=== PATIENT | female | born 1980 | race Caucasian/White ===

== ENCOUNTER 2020-05-21 15:55 | Inpatient (IN) | payer OTHER, MEDICARE, MEDICAID ==
[~2020-05-21] VITALS: Ht 162.6 cm; Wt 60.7 kg
--- NOTE | 2020-05-21 16:22 | NUR ---
PIV STARTED, LABS DRAWN AND SENT TO LAB. PT TAKEN TO CT. RESP EVEN AND UNLABORED, NIYA.
[2020-05-21 16:44] LABS: BASOPHILS % (AUTO) 0 % (0-1); EOSINOPHILS % (AUTO) 2 % (1-7); LYMPHOCYTES % (AUTO) 18 % (22-44); MEAN CORPUSCULAR HEMOGLOBIN 31.6 pg (27.0-34.8); MEAN CORPUSCULAR HGB CONC 33.8 g/dL (32.4-35.8); MEAN PLATELET VOLUME 6.9 fL (7.4-10.4); MONOCYTES % (AUTO) 10 % (2-9); NEUTROPHILS % (AUTO) 69 % (42-75); PLATELET COUNT 174 x10^3/uL (130-400); RED BLOOD COUNT 4.26 x10^6/uL (3.82-5.3)
[2020-05-21 16:47] LABS: ALBUMIN 3.2 g/dL (3.4-5.0); ANION GAP 7 mmol/L (5-15); CALCIUM 8.3 mg/dL (8.5-10.1); CHLORIDE 117 mmol/L (98-107)
[2020-05-21 16:51] LABS: MD NO
[2020-05-21 16:54] LABS: ALANINE AMINOTRANSFERASE 1691 U/L (12-78); ALKALINE PHOSPHATASE 132 U/L (45-117); BILIRUBIN,TOTAL 0.6 mg/dL (0.2-1.0); TOTAL PROTEIN 6.6 g/dL (6.4-8.2)
[2020-05-21] MEDS ORDERED: DIPHENHYDRAMINE 50 MG/ML, 1ML IVPush ONE (17:00)
[2020-05-21] MEDS ORDERED: SODIUM CHLORIDE FLUSH 10ML SYR IVF ONE (17:00)
[2020-05-21] MEDS ORDERED: KETOROLAC 30 MG/1 ML IVPush ONE (17:00)
[2020-05-21] MEDS ORDERED: ONDANSETRON 2MG/ML, 2ML IVPush ONE (17:00)
[2020-05-21] MEDS ORDERED: DIPHENHYDRAMINE 50 MG/ML, 1ML ONE (17:25)
[2020-05-21] MEDS ORDERED: ONDANSETRON 2MG/ML, 2ML ONE (17:25)
[2020-05-21] MEDS ORDERED: KETOROLAC 30 MG/1 ML ONE (17:25)
[2020-05-21] MEDS ORDERED: ONDANSETRON ODT 4 MG PO PRN (18:00)
[2020-05-21] MEDS ORDERED: HEPARIN 5,000 UNITS/ML, 1ML SQ SCH (18:00)
[2020-05-21] MEDS ORDERED: ACETAMINOPHEN 325 MG TABLET PO PRN (18:00)
[2020-05-21] MEDS ORDERED: SUMATRIPTAN 6MG/0.5ML SQ ONE ×2 (18:00→19:52)
[2020-05-21] MEDS ORDERED: ONDANSETRON 2MG/ML, 2ML IVPush PRN (18:00)
[2020-05-21] MEDS ORDERED: ACETYLCYSTEINE IV ONE ×3 (18:30→20:38)
[2020-05-21] MEDS ORDERED: SODIUM CHLORIDE 0.9% 1,000 ML IV SCH (18:30)
[2020-05-21] MEDS ORDERED: DEXTROSE 5% IV ONE ×3 (18:30→20:38)
[2020-05-21] MEDS ORDERED: SODIUM CHLORIDE FLUSH 10ML SYR IVF PRN (18:30)
[2020-05-21 18:51] LABS: INTERNATIONAL NORMALIZED RATIO 1.01 (0.93-1.1); PROTHROMBIN TIME 10.7 Seconds (9.6-11.5)
--- NOTE | 2020-05-21 18:51 | NUR ---
PT IN MRI.
[2020-05-21] MEDS ORDERED: GADOTERATE 7.5 MMOL/15 ML VIAL ONE (18:59)
--- NOTE | 2020-05-21 19:16 | NUR ---
REPORT GIVEN TO JESSICA MAZARIEGOS. PT BACK FROM MRI. RESP EVEN AND UNLABORED, NADN. FAMILY AT BEDSIDE. AWAITING ADMIT.
--- NOTE | 2020-05-21 19:46 | NUR ---
REPORT FROM CASIE MAZARIEGOS. PT ASSISTED TO BEDSIDE COMMODE. MEDICATED STARTED. FATHER AT BEDSIDE. CALL LIGHT IN REACH
--- NOTE | 2020-05-21 20:44 | NUR ---
PT RESTING. VSS. TALAMANTES HAS IMPROVED. WAITING FOR BED ASSIGNMENT
[2020-05-21] MEDS ORDERED: TOPI200T6 PO (21:08)
[2020-05-21] MEDS ORDERED: FLUO90CA5 PO (21:08)
--- NOTE | 2020-05-21 21:38 | NUR ---
PT REQUESTING WATER. PT GIVEN WATER AND SWALLOWED WITH NO DIFFICULTY. VSS. CALL LIGHT IN REACH
[2020-05-21 23:25] VITALS: BP 122/82
[2020-05-22 00:57] LABS: RAPID INFLUENZA A Negative (Negative); RAPID INFLUENZA B Negative (Negative)
[2020-05-22 01:51] VITALS: BP 103/67
[2020-05-22] MEDS ORDERED: ACETYLCYSTEINE IV ONE (04:37)
[2020-05-22] MEDS ORDERED: DEXTROSE 5% IV ONE (04:37)
[2020-05-22 06:39] LABS: BASOPHILS % (AUTO) 0 % (0-1); EOSINOPHILS % (AUTO) 4 % (1-7); LYMPHOCYTES % (AUTO) 32 % (22-44); MEAN CORPUSCULAR HEMOGLOBIN 31.7 pg (27.0-34.8); MEAN CORPUSCULAR HGB CONC 33.9 g/dL (32.4-35.8); MEAN PLATELET VOLUME 7.1 fL (7.4-10.4); MONOCYTES % (AUTO) 11 % (2-9); NEUTROPHILS % (AUTO) 53 % (42-75); PLATELET COUNT 143 x10^3/uL (130-400); RED BLOOD COUNT 3.83 x10^6/uL (3.82-5.3); RED CELL DISTRIBUTION WIDTH 14.9 % (9.6-15.2)
[2020-05-22 06:41] LABS: MD NO
[2020-05-22 06:50] LABS: CALCIUM 7.6 mg/dL (8.5-10.1); CHLORIDE 121 mmol/L (98-107)
[2020-05-22 07:01] LABS: ALANINE AMINOTRANSFERASE 1167 U/L (12-78); ALBUMIN 2.4 g/dL (3.4-5.0); ALKALINE PHOSPHATASE 77 U/L (45-117); ANION GAP 7 mmol/L (5-15); BILIRUBIN,TOTAL 0.7 mg/dL (0.2-1.0); CREATININE 0.44 mg/dL (0.55-1.02); TOTAL PROTEIN 5.2 g/dL (6.4-8.2)
[2020-05-22] MEDS ORDERED: POTASSIUM CHLORIDE 40 MEQ in SODIUM CHLORIDE 0.9% 500 ML IV ONE (07:30)
[2020-05-22 10:01] VITALS: BP 103/55
[2020-05-22 13:06] VITALS: BP 108/73
[2020-05-22] MEDS: SUMATRIPTAN 100 MG TABLET PO PRN (16:57)
[2020-05-22 21:39] VITALS: BP 101/64
[2020-05-22 23:04] LABS: INTERNATIONAL NORMALIZED RATIO 1.11 (0.93-1.1); PROTHROMBIN TIME 11.8 Seconds (9.6-11.5)
[2020-05-22 23:08] LABS: ALBUMIN 2.5 g/dL (3.4-5.0); ANION GAP 7 mmol/L (5-15); CALCIUM 7.9 mg/dL (8.5-10.1); CHLORIDE 121 mmol/L (98-107); CREATININE 0.87 mg/dL (0.55-1.02)
[2020-05-22 23:10] LABS: ALKALINE PHOSPHATASE 87 U/L (45-117); BILIRUBIN,TOTAL 0.5 mg/dL (0.2-1.0); TOTAL PROTEIN 5.5 g/dL (6.4-8.2)
[2020-05-22 23:36] LABS: ALANINE AMINOTRANSFERASE 1053 U/L (12-78)
[2020-05-23 01:44] VITALS: BP 104/70
[2020-05-23] MEDS: SUMATRIPTAN 100 MG TABLET PO PRN ×2 (01:47→14:12)
[2020-05-23] MEDS ORDERED: ACETYLCYSTEINE IV ONE (03:00)
[2020-05-23] MEDS ORDERED: DEXTROSE 5% IV ONE (03:00)
[2020-05-23 05:51] LABS: ALBUMIN 2.5 g/dL (3.4-5.0); ANION GAP 7 mmol/L (5-15); CHLORIDE 119 mmol/L (98-107)
[2020-05-23 05:56] LABS: ALANINE AMINOTRANSFERASE 967 U/L (12-78); ALKALINE PHOSPHATASE 83 U/L (45-117); BILIRUBIN,TOTAL 0.6 mg/dL (0.2-1.0); TOTAL PROTEIN 5.5 g/dL (6.4-8.2)
[2020-05-23 07:00] VITALS: BP 99/63
[2020-05-23 13:35] LABS: INTERNATIONAL NORMALIZED RATIO 1.12 (0.93-1.1); PROTHROMBIN TIME 11.9 Seconds (9.6-11.5)
[2020-05-23 13:38] LABS: ALANINE AMINOTRANSFERASE 941 U/L (12-78); ALBUMIN 2.7 g/dL (3.4-5.0); ANION GAP 6 mmol/L (5-15); CALCIUM 8.1 mg/dL (8.5-10.1); CHLORIDE 117 mmol/L (98-107); CREATININE 0.55 mg/dL (0.55-1.02)
[2020-05-23 13:40] LABS: ALKALINE PHOSPHATASE 83 U/L (45-117); BILIRUBIN,TOTAL 0.8 mg/dL (0.2-1.0)
[2020-05-23 13:55] VITALS: BP 108/71
[2020-05-23] MEDS ORDERED: DEXTROSE 5% IV SCH (14:30)
[2020-05-23] MEDS ORDERED: ACETYLCYSTEINE IV SCH (14:30)
[2020-05-23] MEDS ORDERED: FLUO90CA5 PO (16:29)
[2020-05-23] MEDS: FLUOXETINE HCL 20 MG CAPSULE PO SCH (16:36)
[2020-05-23 20:26] VITALS: BP 102/66
[2020-05-23] MEDS: TOPIRAMATE 100 MG TABLET PO SCH (21:12)
[2020-05-24 02:01] VITALS: BP 113/71
[2020-05-24] MEDS: SUMATRIPTAN 100 MG TABLET PO PRN (02:24)
[2020-05-24 07:15] VITALS: BP 108/69
[2020-05-24] MEDS: FLUOXETINE HCL 20 MG CAPSULE PO SCH (08:09)
[2020-05-24] MEDS: TOPIRAMATE 100 MG TABLET PO SCH (08:09)
[2020-05-24 09:18] LABS: INTERNATIONAL NORMALIZED RATIO 1.11 (0.93-1.1); PROTHROMBIN TIME 11.8 Seconds (9.6-11.5)
[2020-05-24 09:21] LABS: ALBUMIN 2.7 g/dL (3.4-5.0); ANION GAP 8 mmol/L (5-15); CALCIUM 8.3 mg/dL (8.5-10.1); CHLORIDE 118 mmol/L (98-107)
[2020-05-24 09:24] LABS: ALANINE AMINOTRANSFERASE 769 U/L (12-78); ALKALINE PHOSPHATASE 87 U/L (45-117); BILIRUBIN,TOTAL 0.7 mg/dL (0.2-1.0); CREATININE 0.62 mg/dL (0.55-1.02); TOTAL PROTEIN 6.1 g/dL (6.4-8.2)
[2020-05-24] MEDS ORDERED: SUMA100T3 PO (11:04)
== END 2020-05-24 18:07 | disposition home health service (06) | DRG 103 ==
LOC: ED 17:31 → EDIP 17:40 → 4WST 23:02 → 3WST 05-22 11:11
PROVIDERS: ADMIT Hospitalist; ATTEND Hospitalist
DX: G43.001 Migraine without aura, not intractable, with status migrainosus (principal); E87.2 Acidosis; G81.91 Hemiplegia, unspecified affecting right dominant side; H53.2 Diplopia; Z20.828 Contact with and (suspected) exposure to other viral communicable diseases; Z86.73 Personal history of transient ischemic attack (TIA), and cerebral infarction without residual deficits; Z99.3 Dependence on wheelchair
CPT/HCPCS: 36415; 70450; 70553; 76705; 80053; 80299; 85025; 85610; 87400; 96374; 96375; 99285; G0378; J0132; J1885; J2405; J3480; J7060; J7070; 92523-GN; A9575; J1200; J3030; J7030; J7040